=== PATIENT | male | born 1990 | race Caucasian/White ===

== ENCOUNTER 2017-01-23 10:55 | Emergency (ER) | payer SELFPAY ==
--- NOTE | ~2017-01-23 | ER ---
PATIENT'S NAME: CECILIA MENDOZA [facility] AGE: 26 Y [address] ROOM: [place] [address] LOCATION: ED ADMIT DATE: 01/23/2017 ER/Outpatient Report DISCHARGE DATE: 01/23/2017 FAMILY PHYSICIAN: PHYSICIAN, NO ATTENDING PHYSICIAN: Todd Lopez CHIEF COMPLAINT: Right forearm wound. HISTORY OF PRESENT ILLNESS: The patient presents for evaluation of what he thinks may be a spider bite. The wound started a week ago, Thursday. He has been draining significant green material from the wound track. He denies any fevers, chills, or other concerning signs or symptoms. He came in because his work is requesting further evaluation prior to allowing him to continue working. The area is painful. He has been using [id number] remedies for same. PAST MEDICAL HISTORY: Documented on the record and reviewed by me. SOCIAL HISTORY: Documented on the record and reviewed by me. MEDICATIONS: Documented on the record and reviewed by me. ALLERGIES: DOCUMENTED ON THE RECORD AND REVIEWED BY ME. REVIEW OF SYSTEMS: All systems were reviewed and negative except as noted in the HPI. PHYSICAL EXAMINATION: VITAL SIGNS: Blood pressure 141/67, pulse is 65, respiratory rate is 16, temperature 98.6, SpO2 is 96% on room air. Pain is 5 to 6/10. GENERAL: Age-appropriate male. No obvious pain or distress, sitting on the couch with no obvious abnormalities. NEUROLOGIC: Awake and alert. GCS is 15. No focal deficits. No asymmetry. No weakness on exam obviously. HEENT: Normocephalic, atraumatic. Eyes are PERRL. Oropharynx is clear. NECK: Supple. Trachea is midline. CHEST: Heart is regular rate and rhythm with no murmurs. LUNGS: Clear to auscultation bilateral. ABDOMEN: Benign. BACK: Benign. PATIENT'S NAME: CECILIA MENDOZA [facility] AGE: 26 Y [address] ROOM: [place] [address] LOCATION: [facility] ADMIT DATE: 01/23/2017 ER/Outpatient Report DISCHARGE DATE: 01/23/2017 FAMILY PHYSICIAN: PHYSICIAN, NO ATTENDING PHYSICIAN: Todd Lopez EXTREMITIES: Notable for the right forearm with marked areas of erythema with induration centrally with a black eschar in the center. Some induration measuring 3 cm diameter. No fluctuance or purulence appreciated. No lymphangitis. SKIN: Otherwise warm, dry, and intact. LABORATORY DATA AND X-RAYS: None. IMPRESSION: Phlegmon versus abscess of the right forearm with cellulitis. EMERGENCY DEPARTMENT COURSE: The patient was seen and evaluated. Bedside ultrasound does not reveal any subcutaneous free fluid. The presentation is consistent with recent abscess. The patient states he was able to express "a lot of green pus" from the wound. No evidence of systemic infection at this time. We will start him on Bactrim to cover the cellulitis as this is likely an MRSA. He will need close followup. 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 Explained and note given. Return as needed. MD DAMON PERKINS/charan /[id number] d: 01/23/172154 t: 02/11/17 0851, OUTPATIENT REPORT
== END 2017-01-23 11:41 | disposition disaster alternative care site (69) ==
LOC: GMED 10:55
DX: S51.801A Unspecified open wound of right forearm, initial encounter (principal); X58.XXXA Exposure to other specified factors, initial encounter

== ENCOUNTER 2017-01-30 10:15 | Emergency (ER) | payer SELFPAY ==
--- NOTE | ~2017-01-30 | ER ---
PATIENT'S NAME: CECILIA MENDOZA [facility] AGE: 26 Y [address] ROOM: [place] [address] LOCATION: [facility] ADMIT DATE: 01/30/2017 ER/Outpatient Report DISCHARGE DATE: FAMILY PHYSICIAN: PHYSICIAN, NO ATTENDING PHYSICIAN: Clayton Pedro Time of Arrival: Time of Evaluation: Admission date and time documented in the medical record. I saw the patient at 1030 hours. CHIEF COMPLAINT: Open wound, right inner mid proximal forearm. HISTORY OF PRESENT ILLNESS: The patient is a 26-year-old male who presented to the emergency room for followup of a right forearm wound. He is on Bactrim Double Strength b.i.d. with wound care. The wound is not draining much. He is healing in from the edges, and the depth of the wound has decreased. He has not had any fever, shaking chills, or rigors. No other complaints. HOME MEDICATIONS: See attached medication list. ALLERGIES: NONE. SOCIAL HISTORY: Nonsmoker. Occasional intake of alcohol. SIGNIFICANT PAST MEDICAL HISTORY: Negative. PAST SURGICAL HISTORY: Operations: Right knee surgery. REVIEW OF SYSTEMS: All systems reviewed by me are negative with the exception of those discussed in the History of the Present Illness. PHYSICAL EXAMINATION: EXTREMITIES: Right forearm, he has no swelling, no redness. The open wound is 1.5 cm x 2.5 cm. The edges are healing in inwards. The depth of the wound is much improved. There is no real surrounding erythema. NEUROVASCULAR: Neurovascularly intact. Pulse intact. Overall, the wound is healing nicely. PATIENT'S NAME: CECILIA MENDOZA [facility] AGE: 26 Y [address] ROOM: [place] [address] LOCATION: [facility] ADMIT DATE: 01/30/2017 ER/Outpatient Report DISCHARGE DATE: FAMILY PHYSICIAN: PHYSICIAN, NO ATTENDING PHYSICIAN: Clayton Pedro IMPRESSION: Open wound, right forearm with resolved cellulitis. PLAN: The patient was given a work notice to go back to work on 02/09/2017. He is to finish out his Bactrim, continue wound care. Overall the wound has been healing nicely. The cellulitis is resolved, so he is doing much better. MD LESTER STEVENS/charan /[id number] d: 01/30/17 1714 t: 01/31/17 0611, OUTPATIENT REPORT
== END 2017-01-30 11:20 | disposition disaster alternative care site (69) ==
LOC: GMED 10:15
DX: S51.801D Unspecified open wound of right forearm, subsequent encounter (principal); L03.113 Cellulitis of right upper limb; Z98.890 Other specified postprocedural states